=== PATIENT | male | born 1950 | race Caucasian/White ===

== ENCOUNTER 2022-09-03 18:15 | Inpatient (IN) ==
[2022-09-03] MEDS ORDERED: Ipratropium/Albuterol Neb 3 ML ONE (18:34)
[2022-09-03] MEDS ORDERED: Albuterol Neb 7.5 MG, Ipratropium Neb 0.5 MG, Sodium Chloride for inhalation 9 ML IH ONE (18:36)
[2022-09-03] MEDS ORDERED: methylPREDNISolone 125 MG/2 ML VIAL IVP ONE (18:37)
[2022-09-03] MEDS ORDERED: Cefepime HCl 2,000 MG in 0.9 % Sodium Chloride 10 ML IVP ONE (18:38)
[2022-09-03 18:56] LABS: ABG Base Excess 17 mEq/L (-2 to 3); ABG HCO3 46 mEq/L (21-27); ABG Oxygen Saturation 100 % (95-98); ABG PCO2 75 mmHg (35-45); ABG PH 7.39 pH Units (7.32-7.45); ABG PO2 403 mmHg (85-104); ABG TCO2 48 mEq/L (20-26)
[2022-09-03 19:17] LABS: Basophils % 0.3 %; Eosinophils # 0.3 K/mcL (0.0-0.6); Eosinophils % 4.1 %; Hematocrit 41.6 % (37.5-50.1); Immature Granulocytes % 0.4 % (0-4); Lymphocytes # 1.7 K/mcL (0.6-4.6); Lymphocytes % 22.1 %; Mean Corpuscular HGB Conc 31.3 g/dL (31.6-35.5); Monocytes # 0.7 K/mcL (0.0-1.3); Monocytes % 8.3 %; Neutrophils # 5.1 K/mcL (1.6-8.9); Platelet Count 216 K/mcL (140-400); Red Cell Distribution Width 12.8 % (11.5-14.5); Segmented Neutrophils % 64.8 %; White Blood Count 7.8 K/mcL (4.3-11.1)
[2022-09-03 19:20] LABS: Bilirubin,Urine Negative (Negative); Blood,Urine Negative (Negative); Clarity,Urine Clear (Clear); Color,Urine Yellow (Yellow); Glucose,Urine (UA) 70 mg/dL (Normal); Hyaline Casts,Urine Few per lpf (None Seen); Ketones,Urine Negative (Negative); Leukocyte Esterase,Urine Negative (Negative); Mucus,Urine Many per lpf (None-Few); Nitrite,Urine Negative (Negative); PH,Urine 6.5 pH Units (5.0-8.0); Protein,Urine 30 mg/dL (Neg-Trace); RBC,Urine 15-30 per hpf (0-3); Specific Gravity,Urine 1.029 (1.010-1.025); Squamous Epithelial Cell,Urine Few per hpf (None-Few); Urobilinogen,Urine Normal (Normal); WBC,Urine 0-3 per hpf (0-3)
[2022-09-03 19:28] LABS: INR 1.6; Prothrombin Time 17.3 Seconds (9.4-12.1)
[2022-09-03 19:31] LABS: Activated Partial Thrombo Time 41.6 Seconds (26.0-36.0)
[2022-09-03 19:48] LABS: Alanine Aminotransferase 12 Units/L (7-52); Albumin 3.7 g/dL (3.5-5.7); Albumin/Globulin Ratio 0.8 (1.1-2.2); Alkaline Phosphatase 65 Units/L (34-104); Aspartate Amino Transferase 16 Units/L (13-39); BUN/Creatinine Ratio 34 (6-26); Bilirubin,Indirect 0.3 mg/dL (0.0-1.0); Bilirubin,Total 0.3 mg/dL (0.3-1.0); Blood Urea Nitrogen 17 mg/dL (8-23); Calcium 11.2 mg/dL (8.6-10.3); Carbon Dioxide 40 mEq/L (23-29); Chloride 101 mEq/L (98-107); Globulin 4.6 g/dL (2.4-3.5); Glucose 146 mg/dL (70-105); Lipase 6 Units/L (11-82); Magnesium 1.6 mg/dL (1.6-2.6); Osmolality,Calculated 310 (280-300); Phosphorous 2.4 mg/dL (2.7-4.5); Potassium 3.4 mEq/L (3.5-5.1); Sodium 148 mEq/L (136-145); Total Protein 8.3 g/dL (6.4-8.9); Troponin I < 0.03 ng/mL (< 0.04)
[2022-09-03] MEDS ORDERED: carBAMazepine 200 MG TABLET PO ONE (21:00)
[2022-09-03] MEDS ORDERED: Divalproex (12 HR) 500 MG TABLET PO ONE (21:00)
[2022-09-03] MEDS ORDERED: 0.9 % Sodium Chloride 1,000 ML IVC ONE (22:41)
[2022-09-03] MEDS ORDERED: Naloxone 0.4 MG/ML INJ IVP PRN (22:56)
[2022-09-03] MEDS ORDERED: Ondansetron 4 MG/2 ML VIAL IVP PRN (22:56)
[2022-09-03] MEDS ORDERED: Acetaminophen 325 MG TABLET PO PRN (22:56)
[2022-09-04] MEDS ORDERED: Ipratropium/Albuterol Neb 3 ML IH PRN (02:31)
[2022-09-04 05:44] LABS: Basophils % 0.2 %; Eosinophils % 0.4 %; Hematocrit 30.3 % (37.5-50.1); Immature Granulocytes % 0.4 % (0-4); Lymphocytes # 1.3 K/mcL (0.6-4.6); Lymphocytes % 27.3 %; Mean Corpuscular HGB Conc 31.7 g/dL (31.6-35.5); Mean Corpuscular Hemoglobin 31.8 pg (28.0-33.3); Mean Corpuscular Volume 100.3 fL (83.0-100.0); Mean Platelet Volume 11.2 fL (9.4-12.4); Monocytes # 0.4 K/mcL (0.0-1.3); Monocytes % 7.8 %; Platelet Count 199 K/mcL (140-400); Red Blood Count 3.02 M/mcL (4.19-5.50); Red Cell Distribution Width 12.8 % (11.5-14.5); Segmented Neutrophils % 63.9 %; White Blood Count 4.8 K/mcL (4.3-11.1)
[2022-09-04 05:45] LABS: Hemoglobin 9.6 g/dL (12.9-16.9)
[2022-09-04 05:49] LABS: VBG HCO3 39 mEq/L (21-27); VBG PCO2 51 mmHg (41-51); VBG PH 7.49 pH Units (7.32-7.42); VBG PO2 61 mmHg (25-50)
[2022-09-04 05:54] LABS: INR 1.6; Prothrombin Time 17.3 Seconds (9.4-12.1)
[2022-09-04] MEDS: methylPREDNISolone 125 MG/2 ML VIAL IVP SCH ×2 (06:16→18:23)
[2022-09-04] MEDS: *HR* Heparin 5,000 UNIT/ML VIAL SQ SCH ×3 (06:17→20:58)
[2022-09-04] MEDS: Levothyroxine 25 MCG TABLET PO SCH (06:26)
[2022-09-04 06:28] LABS: BUN/Creatinine Ratio 43 (6-26); Blood Urea Nitrogen 19 mg/dL (8-23); Calcium 10.2 mg/dL (8.6-10.3); Carbon Dioxide 40 mEq/L (23-29); Chloride 106 mEq/L (98-107); Glucose 122 mg/dL (70-105); Magnesium 1.6 mg/dL (1.6-2.6); Osmolality,Calculated 312 (280-300); Potassium 3.8 mEq/L (3.5-5.1); Sodium 149 mEq/L (136-145); Thyroid Stimulating Hormone 0.807 mcIU/mL (0.340-5.600); Troponin I < 0.03 ng/mL (< 0.04)
[2022-09-04 06:40] LABS: Adenovirus Not Detected (Not Detect); Bordetella Pertussis Not Detected (Not Detect); Chlamydophila pneumoniae Not Detected (Not Detect); Coronavirus 229E Not Detected (Not Detect); Coronavirus HKU1 Not Detected (Not Detect); Coronavirus NL63 Not Detected (Not Detect); Coronavirus OC43 Not Detected (Not Detect); Human Metapneumovirus Not Detected (Not Detect); Human Rhinovirus/Enterovirus Not Detected (Not Detect); Influenza A Subtype 2009 H1 Not Detected (Not Detect); Influenza B Not Detected (Not Detect); Mycoplasma pneumoniae Not Detected (Not Detect); Parainfluenza Virus 1 Not Detected (Not Detect); Parainfluenza Virus 2 Not Detected (Not Detect); Parainfluenza Virus 3 Not Detected (Not Detect); Parainfluenza Virus 4 Not Detected (Not Detect); Respiratory Syncytial Virus Not Detected (Not Detect); SARS-CoV-2 Not Detected (Not Detect)
[2022-09-04] MEDS ORDERED: Vancomycin 1,500 MG/265 ML IV.SOLN IVPB SCH (07:00)
[2022-09-04] MEDS ORDERED: (Ketotifen Fumarate [Zaditor] 5 ML Drops) OP SCH (09:00)
[2022-09-04] MEDS ORDERED: hydroCHLOROthiazide 25 MG TABLET PO SCH (09:00)
[2022-09-04] MEDS: Azithromycin 500 MG in 0.9 % Sodium Chloride 250 ML IVPB SCH (09:01)
[2022-09-04] MEDS: Cefepime HCl 2,000 MG in 0.9 % Sodium Chloride 10 ML IVP SCH ×2 (09:02→16:53)
[2022-09-04] MEDS ORDERED: Furosemide 20 MG/2 ML VIAL IVP ONE ×2 (10:00→14:41)
[2022-09-04] MEDS: clonazePAM 1 MG TABLET PO SCH ×3 (11:40→20:58)
[2022-09-04] MEDS: Aspirin Enteric Coated 81 MG Tablet PO SCH (11:42)
[2022-09-04] MEDS: levETIRAcetam 250 MG TABLET PO SCH ×2 (11:42→20:57)
[2022-09-04] MEDS: carBAMazepine 200 MG TABLET PO SCH ×2 (11:42→20:58)
[2022-09-04] MEDS: (Clobazam [Onfi] 10 MG Tablet) PO SCH ×2 (13:31→22:33)
[2022-09-04] MEDS: Petrolatum, White OINT.PACK TP SCH ×2 (13:32→20:59)
[2022-09-04] MEDS: Ammonium Lactate 30 APPL/225 GM BOTTLE TP SCH ×2 (13:32→20:57)
[2022-09-04] MEDS: Divalproex (24 HR) 500 MG TABLET PO SCH (13:40)
[2022-09-04] MEDS ORDERED: D5% in Water 1,000 ML IVC SCH (15:15)
[2022-09-04] MEDS: traZODone 50 MG TABLET PO SCH (20:57)
[2022-09-05 01:46] LABS: Hemoglobin 10.8 g/dL (12.9-16.9); Mean Corpuscular HGB Conc 32.7 g/dL (31.6-35.5); Mean Corpuscular Hemoglobin 31.7 pg (28.0-33.3); Mean Corpuscular Volume 96.8 fL (83.0-100.0); Mean Platelet Volume 11.3 fL (9.4-12.4); Platelet Count 172 K/mcL (140-400); Red Blood Count 3.41 M/mcL (4.19-5.50); Red Cell Distribution Width 12.2 % (11.5-14.5); White Blood Count 3.5 K/mcL (4.3-11.1)
[2022-09-05 01:51] LABS: BUN/Creatinine Ratio 41 (6-26); Blood Urea Nitrogen 17 mg/dL (8-23); Calcium 8.9 mg/dL (8.6-10.3); Carbon Dioxide 39 mEq/L (23-29); Chloride 96 mEq/L (98-107); Glucose 150 mg/dL (70-105); Magnesium 1.5 mg/dL (1.6-2.6); Osmolality,Calculated 292 (280-300); Potassium 3.6 mEq/L (3.5-5.1); Sodium 139 mEq/L (136-145)
[2022-09-05] MEDS: Cefepime HCl 2,000 MG in 0.9 % Sodium Chloride 10 ML IVP SCH ×3 (02:58→20:37)
[2022-09-05] MEDS: *HR* Heparin 5,000 UNIT/ML VIAL SQ SCH ×3 (05:47→20:39)
[2022-09-05] MEDS: methylPREDNISolone 125 MG/2 ML VIAL IVP SCH ×2 (05:49→18:38)
[2022-09-05] MEDS: carBAMazepine 200 MG TABLET PO SCH ×2 (08:53→20:38)
[2022-09-05] MEDS: Aspirin Enteric Coated 81 MG Tablet PO SCH (08:58)
[2022-09-05] MEDS: levETIRAcetam 250 MG TABLET PO SCH ×2 (08:59→20:38)
[2022-09-05] MEDS: Azithromycin 500 MG in 0.9 % Sodium Chloride 250 ML IVPB SCH (08:59)
[2022-09-05] MEDS: Divalproex (24 HR) 500 MG TABLET PO SCH (09:41)
[2022-09-05] MEDS: Levothyroxine 25 MCG TABLET PO SCH (09:42)
[2022-09-05] MEDS: clonazePAM 1 MG TABLET PO SCH ×3 (09:42→20:45)
[2022-09-05] MEDS: (Clobazam [Onfi] 10 MG Tablet) PO SCH ×2 (09:42→20:39)
[2022-09-05] MEDS: Ammonium Lactate 30 APPL/225 GM BOTTLE TP SCH ×2 (09:43→20:39)
[2022-09-05] MEDS: Petrolatum, White OINT.PACK TP SCH ×2 (09:43→20:40)
[2022-09-05] MEDS ORDERED: E-Z-HD (BARIUM SULF) SUSPENSION PO ONE (12:33)
[2022-09-05] MEDS ORDERED: E-Z-PAQUE (BARIUM SULF) SUSP 1 BOTTLE PO ONE (12:33)
[2022-09-05] MEDS ORDERED: Furosemide 20 MG/2 ML VIAL IVP ONE (13:59)
[2022-09-05] MEDS: traZODone 50 MG TABLET PO SCH (20:39)
[2022-09-06] MEDS: Cefepime HCl 2,000 MG in 0.9 % Sodium Chloride 10 ML IVP SCH ×3 (02:17→18:38)
[2022-09-06] MEDS: methylPREDNISolone 125 MG/2 ML VIAL IVP SCH ×2 (05:25→18:38)
[2022-09-06] MEDS: *HR* Heparin 5,000 UNIT/ML VIAL SQ SCH ×3 (05:26→20:31)
[2022-09-06] MEDS: Levothyroxine 25 MCG TABLET PO SCH (05:27)
[2022-09-06 05:51] LABS: Hemoglobin 11.2 g/dL (12.9-16.9); Mean Corpuscular HGB Conc 32.9 g/dL (31.6-35.5); Mean Corpuscular Hemoglobin 31.4 pg (28.0-33.3); Mean Corpuscular Volume 95.2 fL (83.0-100.0); Platelet Count 177 K/mcL (140-400); Red Blood Count 3.57 M/mcL (4.19-5.50); White Blood Count 4.4 K/mcL (4.3-11.1)
[2022-09-06 06:12] LABS: BUN/Creatinine Ratio 30 (6-26); Blood Urea Nitrogen 12 mg/dL (8-23); Calcium 8.8 mg/dL (8.6-10.3); Carbon Dioxide 39 mEq/L (23-29); Chloride 94 mEq/L (98-107); Glucose 121 mg/dL (70-105); Magnesium 1.9 mg/dL (1.6-2.6); Osmolality,Calculated 283 (280-300); Potassium 3.5 mEq/L (3.5-5.1); Sodium 136 mEq/L (136-145)
[2022-09-06] MEDS: Azithromycin 500 MG in 0.9 % Sodium Chloride 250 ML IVPB SCH (10:24)
[2022-09-06] MEDS: clonazePAM 1 MG TABLET PO SCH ×3 (10:25→20:32)
[2022-09-06] MEDS: Aspirin Enteric Coated 81 MG Tablet PO SCH (10:25)
[2022-09-06] MEDS: carBAMazepine 200 MG TABLET PO SCH ×2 (10:25→20:29)
[2022-09-06] MEDS: Divalproex (24 HR) 500 MG TABLET PO SCH (10:25)
[2022-09-06] MEDS: (Clobazam [Onfi] 10 MG Tablet) PO SCH ×2 (10:26→20:30)
[2022-09-06] MEDS: levETIRAcetam 250 MG TABLET PO SCH ×2 (10:26→20:30)
[2022-09-06] MEDS: Ammonium Lactate 30 APPL/225 GM BOTTLE TP SCH ×2 (10:26→20:29)
[2022-09-06] MEDS: Petrolatum, White OINT.PACK TP SCH ×2 (10:27→20:28)
[2022-09-06] MEDS: traZODone 50 MG TABLET PO SCH (20:29)
[2022-09-07] MEDS: Cefepime HCl 2,000 MG in 0.9 % Sodium Chloride 10 ML IVP SCH ×2 (02:15→13:33)
[2022-09-07] MEDS: Levothyroxine 25 MCG TABLET PO SCH (05:57)
[2022-09-07] MEDS: *HR* Heparin 5,000 UNIT/ML VIAL SQ SCH ×2 (06:00→13:33)
[2022-09-07] MEDS: methylPREDNISolone 125 MG/2 ML VIAL IVP SCH (06:00)
[2022-09-07 07:43] VITALS: BP 175/84
[2022-09-07] MEDS ORDERED: Azithromycin 250 MG TABLET PO SCH (09:00)
[2022-09-07] MEDS: Ammonium Lactate 30 APPL/225 GM BOTTLE TP SCH (09:14)
[2022-09-07] MEDS: Divalproex (24 HR) 500 MG TABLET PO SCH (09:14)
[2022-09-07] MEDS: (Clobazam [Onfi] 10 MG Tablet) PO SCH (09:14)
[2022-09-07] MEDS: carBAMazepine 200 MG TABLET PO SCH (09:15)
[2022-09-07] MEDS: Aspirin Enteric Coated 81 MG Tablet PO SCH (09:15)
[2022-09-07] MEDS: levETIRAcetam 250 MG TABLET PO SCH (09:15)
[2022-09-07] MEDS: clonazePAM 1 MG TABLET PO SCH ×2 (09:20→13:32)
[2022-09-07] MEDS: Petrolatum, White OINT.PACK TP SCH (11:31)
[2022-09-07] MEDS ORDERED: Furosemide 40 MG/4 ML VIAL IVP ONE (11:52)
[2022-09-07 11:55] VITALS: PULSE 62; TEMP 97.1; O2SAT 94
[2022-09-09] MEDS ORDERED: NON-FORMULARY MEDICATION 1 EACH EACH (Alendronate Sodium 70 MG Tablet) PO SCH (02:34)
== END 2022-09-07 15:03 | DRG 177 ==
LOC: EMEROOARM 18:15 → SUATTDRO 23:05 → 2ANU 23:05 → 3NENU 09-04 00:56
PROVIDERS: ADMIT Internal Medicine; ATTEND Internal Medicine